=== PATIENT | female | born 1990 | race Caucasian/White ===

== ENCOUNTER 2018-12-15 09:07 | Emergency (ER) | payer BC ==
[2018-12-15] MEDS: ONDANSETRON (ODT) 4 MG TAB ODT (10:17)
[2018-12-15] MEDS: HYDROCODONE/APAP (10/325) TAB PO (10:17)
== END 2018-12-15 12:00 | disposition home or self-care (01) ==
LOC: E/R 09:07
DX: S16.1XXA Strain of muscle, fascia and tendon at neck level, initial encounter (principal); S20.219A Contusion of unspecified front wall of thorax, initial encounter; S39.012A Strain of muscle, fascia and tendon of lower back, initial encounter; R40.2142 Coma scale, eyes open, spontaneous, at arrival to emergency department; R40.2252 Coma scale, best verbal response, oriented, at arrival to emergency department; R40.2362 Coma scale, best motor response, obeys commands, at arrival to emergency department; V43.52XA Car driver injured in collision with other type car in traffic accident, initial encounter
CPT/HCPCS: 71045; 72040; 72100; 84703; 99284-25